=== PATIENT | male | born 1965 | race Caucasian/White ===

== ENCOUNTER → 2022-01-19 13:31 | Outpatient (CLI) | payer OTHER, MEDICAID, SELFPAY ==
--- NOTE | 2022-01-19 13:35 | DI.ECHO.S_ITS ---
[facility]---------+ [facility] +---------+ : : [address] : [address] : : : : [id number] : : : : Phone: [phone]---------+ Echocardiogram Report + + :Name: MERCEDES JOHNSON Study Date: 01/19/2022 Height: 75 in : :[facility] ReadingLocation: Weight: 297 lb : : Gender: Male BSA: 2.6 m2 : :: 1965 Age: 56 yrs BP: 157/96 mmHg: :Reason For Study: SOB : :Ordering Physician: : :Kellie Craig Performed By: Stephen Maciel : :Referring: Kellie Craig : + + Interpretation Summary The ejection fraction is estimated to be 55-60%. Diastolic parameters suggest probable normal left ventricular diastolic function and normal filling pressures. The right ventricle is normal in size and function. There is trace aortic regurgitation. Pulmonary artery pressures cannot be estimated because of the lack of a measurable TR jet velocity. The ascending aorta is mildly enlarged. Procedure: A two-dimensional transthoracic echocardiogram with color flow and Doppler was performed. The study quality was technically adequate. There is no prior echocardiogram noted for this patient. The patient was in normal sinus rhythm during the exam. Left Ventricle: The left ventricle is normal in size. There is borderline concentric left ventricular hypertrophy. Left ventricular systolic function is normal. The ejection fraction is estimated to be 55-60%. There are no focal wall motion abnormalities. Diastolic parameters suggest probable normal left ventricular diastolic function and normal filling pressures. Right Ventricle: The right ventricle is normal in size and function. Atria: Both atria are normal in size. The interatrial septum grossly appears intact with no obvious evidence for an atrial septal defect. Mitral Valve: The mitral valve is normal in structure and function. There is trace mitral regurgitation. Aortic Valve: The aortic valve opens well. There is no aortic valve stenosis. There is trace aortic regurgitation. Tricuspid Valve: The tricuspid valve is normal in structure and function. There is a trace or physiologic amount of tricuspid regurgitation. Pulmonary artery pressures cannot be estimated because of the lack of a measurable TR jet velocity. Pulmonic Valve: The pulmonic valve is not well seen, but is grossly normal. There is no pulmonic valvular regurgitation. Great Vessels: The aortic root is mildly dilated. The ascending aorta is mildly enlarged. The IVC is of normal diameter and collapses greater than 50% with a sniff. This suggests a low right atrial pressure of 3 mm Hg. Pericardium/ Pleura There is no pericardial effusion. There is no pleural effusion. MMode/2D Measurements & Calculations LVIDd: 4.8 cm LVOT diam: 2.3 cm LVIDs: 3.4 cm Ao root diam: 3.8 cm FS: 29.2 % asc Aorta Diam: 3.7 cm IVSd: 1.2 cm LVPWd: 1.2 cm LV muniz. diameter/BSA (cm/m^2): 1.8 LV sys. diameter/BSA (cm/m^2): 1.3 LA dimension: 3.7 cm RA long axis: 5.3 cm LA A2 area: 22.2 cm2 LA A4 area: 21.1 cm2 LA length (vol): 6.3 cm LA vol: 62.9 ml LA vol index: 24.2 ml/m2 TAPSE_phl: 2.6 cm Doppler Measurements & Calculations Ao V2 max: 189.0 cm/sec LVOT Max Frederic: 174.0 cm/sec Ao V2 mean: 116.0 cm/sec LV V1 max P.1 mmHg Ao max P.0 mmHg LV V1 VTI: 34.3 cm Ao mean P.0 mmHg RADHA(I,D): 4.3 cm2 Ao V2 VTI: 33.1 cm RADHA(V,D): 3.8 cm2 sev ratio: 1.0 RADHA indexed to BSA (cm^2/m^2): 1.7 MV E max frederic: 102.0 cm/sec SV(LVOT): 142.5 ml MV A max frederic: 83.7 cm/sec MV E/A: 1.2 Med Peak E' Frederic: 6.4 cm/sec E/E' med: 16.0 Lat Peak E' Frederic: 9.0 cm/sec E/E' lat: 11.3 E/e' average: 13.7 MV dec time: 0.18 sec AV VR_phl: 0.92 MV P1/2t-pr_phl: 52.0 msec RADHA(VTI)/BSA_phl: 1.6 Reading Physician:10:02 AM
== END ==
PROVIDERS: PCP Family Medicine; Referring Provider Internal Medicine Cardiovascular Disease; Visit Provider Internal Medicine Cardiovascular Disease
DX: I77.810 Thoracic aortic ectasia (principal); R06.02 Shortness of breath
CPT/HCPCS: 93306

== ENCOUNTER → 2022-02-07 12:33 | Outpatient (CLI) | payer OTHER, MEDICAID, SELFPAY ==
[2022-02-07 14:09] LABS: TSH w/ Reflex to FT4 0.04 uIU/mL (0.47-4.68)
[2022-02-07 14:52] LABS: Free T4, Direct Thyroxine 1.06 ng/dL (0.78-2.19)
[2022-02-09 08:34] LABS: Triiodothyronine T3 Total 146 ng/dL (71-180)
[2022-02-14 10:10] LABS: Aldosterone/Renin Activity Rat 32.1 (0.0-30.0); Plama Renin, LC/MS/MS 0.399 ng/mL/hr (0.167-5.380)
[2022-02-14 12:53] LABS: Renin Activity 32.1
== END ==
PROVIDERS: PCP Family Medicine; Referring Provider Nurse Practitioner Acute Care; Visit Provider Nurse Practitioner Acute Care
DX: I10 Essential (primary) hypertension (principal)
CPT/HCPCS: 36415; 82088; 84244; 84439; 84443; 84480; 84481